=== PATIENT | male | born 1930 | race Caucasian/White ===

== ENCOUNTER 2017-02-06 10:53 | Inpatient (IN) | payer OTHER, BC ==
[~2017-02-06] VITALS: Ht 157.5 cm; Wt 49.3 kg
[2017-02-06 14:46] LABS: BASOPHIL (%) 0.1 % (0-1); EOSINOPHIL (%) 0.1 % (0-5); HEMATOCRIT 27.5 % (38.0-50.0); HEMOGLOBIN 7.9 G/DL (12.5-16.6); IMMATURE GRANULOCYTE (%) 0.7 % (0.0-0.7); LYMPHOCYTE (%) 9.9 % (15-42); LYMPHOCYTE COUNT 0.7 K/uL (1.0-2.8); MCH 18.8 PG (29.0-34.0); MCHC 28.7 G/DL (30.0-36.0); MCV 65.5 FL (86-99); MONOCYTE (%) 7.2 % (3-12); MONOCYTE COUNT 0.5 K/uL (0-0.8); NEUTROPHIL COUNT 5.5 K/uL (1.8-6.4); PLATELET COUNT 119 K/uL (156-360); RBC DIS.WIDTH-CV 20.7 % (11.8-14.6); RBC DIS.WIDTH-SD 46.3 % (39-53); WHITE BLOOD COUNT 6.8 K/uL (4.1-10.2)
[2017-02-06 14:48] LABS: ALBUMIN 3.2 g/dL (3.2-4.8)
[2017-02-06 14:49] LABS: MAGNESIUM 2.2 mg/dL (1.3-2.7)
[2017-02-06 14:50] LABS: APPEARANCE CLEAR ((CLEAR)); BILIRUBIN NEGATIVE; BLOOD LARGE; COLOR YELLOW ((YELLOW)); GLUCOSE (STRIP) 150; KETONES 5; LEUKOCYTES NEGATIVE; NITRITE NEGATIVE; PROTEIN (STRIP) 100; SPECIFIC GRAVITY 1.013 (1.000-1.030); UROBILINOGEN 0.2 MG/DL (0.2-1.0)
[2017-02-06 14:51] LABS: GLUCOSE 97 mg/dL (70-99); TOTAL PROTEIN 5.2 g/dL (6.4-8.3)
[2017-02-06 14:53] LABS: TOTAL BILIRUBIN 0.7 mg/dL (0.0-1.0)
[2017-02-06 14:54] LABS: ALKALINE PHOSPHATASE 98 IU/L (3-129)
[2017-02-06 14:54] LABS: BACTERIA RARE /HPF; EPITHELIAL CELLS RARE /HPF; MUCUS TRACE /LPF; RED BLOOD CELLS 0-5 /HPF (0-5); UCUL ADDED? YES
[2017-02-06 14:55] LABS: CREATININE 2.2 mg/dL (0.6-1.3); GFR ESTIMATE (CALCULATED) 30 mL/min/ (58.99-99999)
[2017-02-06 14:56] LABS: AST (GOT) 48 IU/L (2-34); UREA NITROGEN (BUN) 36 mg/dL (9-23)
[2017-02-06 14:57] LABS: ALT (GPT) 39 IU/L (3-49)
[2017-02-06 14:58] LABS: CHLORIDE 100 mEq/L (99-109); POTASSIUM 1.9 mEq/L (3.7-5.4)
[2017-02-06 15:03] LABS: SODIUM 139 mEq/L (136-147)
[2017-02-06] MEDS ORDERED: EYE DROP15 ML BOTH EYES (15:34)
[2017-02-06] MEDS ORDERED: ASPIR 8181 M1 PO (15:34)
[2017-02-06] MEDS ORDERED: COLACE100 MG PO (15:34)
[2017-02-06 15:36] LABS: CREATINE KINASE 263 IU/L (1-294); TOTAL CK 263 IU/L (1-294)
[2017-02-06 15:41] LABS: CK-MB 17.3 ng/mL (0.0-4.9); CKMB RELATIVE INDEX 6.6 (0.0-3.9)
[2017-02-06 16:27] LABS: TROP-I INTERPRETATION NEGATIVE; TROPONIN-I 0.13 ng/mL (0.0-0.30)
[2017-02-06 18:58] LABS: POTASSIUM 2.5 mEq/L (3.7-5.4)
[2017-02-06 20:07] LABS: IRON 14 MCG/DL (35-150); TRANSFERRIN (TIBC) 246.3 mg/dL (215-380); TRANSFERRIN SATUR. 6 % (20-55)
[2017-02-06 20:27] LABS: FERRITIN 13 NG/ML (22-322)
[2017-02-06 20:40] LABS: THYROTROPIN (TSH) 3.1 MIU/L (0.4-5.5)
[2017-02-06 21:38] VITALS: BP 122/60
[2017-02-06 23:01] LABS: TROP-I INTERPRETATION NEGATIVE; TROPONIN-I 0.11 ng/mL (0.0-0.30)
[2017-02-06 23:57] VITALS: BP 95/46
[2017-02-07 04:09] VITALS: BP 105/53
[2017-02-07 08:02] LABS: FOLIC ACID (FOLATE) 6.1 NG/ML (5.0-22.0)
[2017-02-07 08:05] LABS: HEMATOCRIT 25.9 % (38.0-50.0); HEMOGLOBIN 7.2 G/DL (12.5-16.6); MCH 18.8 PG (29.0-34.0); MCHC 27.8 G/DL (30.0-36.0); MCV 67.6 FL (86-99); PLATELET COUNT 107 K/uL (156-360); RBC DIS.WIDTH-CV 20.9 % (11.8-14.6); RBC DIS.WIDTH-SD 49.4 % (39-53); RED BLOOD COUNT 3.83 M/uL (4.00-5.50); WHITE BLOOD COUNT 6.7 K/uL (4.1-10.2)
[2017-02-07 08:07] VITALS: BP 121/60
[2017-02-07 08:17] LABS: TROP-I INTERPRETATION NEGATIVE; TROPONIN-I 0.12 ng/mL (0.0-0.30)
[2017-02-07 08:26] LABS: CHLORIDE 111 MEQ/L (99-109); CREATININE 1.9 MG/DL (0.6-1.3); GFR ESTIMATE (CALCULATED) 36 mL/min/ (58.99-99999); GLUCOSE 95 mg/dL (70-99); SODIUM 142 MEQ/L (136-147); UREA NITROGEN (BUN) 29 mg/dL (9-23)
[2017-02-07 08:30] LABS: POTASSIUM 3.5 MEQ/L (3.7-5.4)
[2017-02-07 11:07] LABS: FERRITIN 14 NG/ML (22-322); IRON 14 MCG/DL (35-150); TRANSFERRIN (TIBC) 222.6 mg/dL (215-380); TRANSFERRIN SATUR. 6 % (20-55)
[2017-02-07 11:31] VITALS: BP 114/60
[2017-02-07 16:03] VITALS: BP 117/60
[2017-02-07 19:48] VITALS: BP 116/55
[2017-02-08 00:04] VITALS: BP 120/64
[2017-02-08 07:03] LABS: HEMATOCRIT 27.6 % (38.0-50.0); HEMOGLOBIN 7.6 G/DL (12.5-16.6); MCH 18.9 PG (29.0-34.0); MCHC 27.5 G/DL (30.0-36.0); MCV 68.7 FL (86-99); RBC DIS.WIDTH-CV 21.4 % (11.8-14.6); RBC DIS.WIDTH-SD 51.7 % (39-53); RED BLOOD COUNT 4.02 M/uL (4.00-5.50); WHITE BLOOD COUNT 6.8 K/uL (4.1-10.2)
[2017-02-08 07:09] LABS: CHLORIDE 111 MEQ/L (99-109); GFR ESTIMATE (CALCULATED) 34 mL/min/ (58.99-99999); GLUCOSE 100 mg/dL (70-99); SODIUM 143 MEQ/L (136-147); UREA NITROGEN (BUN) 33 mg/dL (9-23)
[2017-02-08 07:12] LABS: POTASSIUM 4.5 MEQ/L (3.7-5.4)
[2017-02-08 07:40] LABS: PLAT.SUFFICIENCY DECREASED; PLATELET COUNT 114 K/uL (156-360)
[2017-02-08 08:03] VITALS: BP 110/56
[2017-02-08 16:35] VITALS: BP 116/59
[2017-02-09] VITALS (7 sets, daily range): BP systolic 91–136; BP diastolic 53–89
[2017-02-09 06:40] LABS: CHLORIDE 111 MEQ/L (99-109); CREATININE 2.4 MG/DL (0.6-1.3); GFR ESTIMATE (CALCULATED) 27 mL/min/ (58.99-99999); GLUCOSE 114 mg/dL (70-99); SODIUM 142 MEQ/L (136-147); UREA NITROGEN (BUN) 43 mg/dL (9-23)
[2017-02-09 08:04] LABS: HEMATOCRIT 27.8 % (38.0-50.0); HEMOGLOBIN 7.8 G/DL (12.5-16.6); MCH 18.9 PG (29.0-34.0); MCHC 28.1 G/DL (30.0-36.0); MCV 67.5 FL (86-99); RBC DIS.WIDTH-CV 21.4 % (11.8-14.6); RBC DIS.WIDTH-SD 49.4 % (39-53); RED BLOOD COUNT 4.12 M/uL (4.00-5.50); WHITE BLOOD COUNT 9.5 K/uL (4.1-10.2)
[2017-02-09 08:07] LABS: PLAT.SUFFICIENCY DECREASED; PLATELET COUNT 134 K/uL (156-360)
[2017-02-09 14:30] LABS: CARBOXY HGB 0.3 % (0-5); COMMENTS - BLOOD GASES C+; DEVICE NRB; FI02 100 %; METHEMOGLOBIN 1.8 % (0-1.5); O2 FLOW 15 L/MIN; PCO2 < 19 mm Hg (35-45); PO2 282 mm Hg (80-100); SITE LR; TOTAL RESP RATE 20 resp/min; pH 7.17 (7.35-7.45)
[2017-02-09 14:58] LABS: TROP-I INTERPRETATION NEGATIVE; TROPONIN-I 0.26 ng/mL (0.0-0.30)
[2017-02-09 15:50] LABS: CHLORIDE 108 MEQ/L (99-109); CREATININE 2.8 MG/DL (0.6-1.3); GFR ESTIMATE (CALCULATED) 23 mL/min/ (58.99-99999); GLUCOSE 96 mg/dL (70-99); SODIUM 141 MEQ/L (136-147); UREA NITROGEN (BUN) 50 mg/dL (9-23)
[2017-02-09 15:51] LABS: POTASSIUM 6.1 MEQ/L (3.7-5.4)
[2017-02-09 15:55] LABS: BASOPHIL (%) 0.1 % (0-1); EOSINOPHIL (%) 0 % (0-5); HEMATOCRIT 35.9 % (38.0-50.0); HEMOGLOBIN 9.4 G/DL (12.5-16.6); IMMATURE GRANULOCYTE (%) 1.1 % (0.0-0.7); LYMPHOCYTE (%) 3.5 % (15-42); LYMPHOCYTE COUNT 0.5 K/uL (1.0-2.8); MCH 18.9 PG (29.0-34.0); MCHC 26.2 G/DL (30.0-36.0); MONOCYTE (%) 3.9 % (3-12); MONOCYTE COUNT 0.6 K/uL (0-0.8); NEUTROPHIL (%) 91.4 % (45-76); NEUTROPHIL COUNT 13.7 K/uL (1.8-6.4); NRBC (%) 0.4 /100 WBC (0-0); RBC DIS.WIDTH-CV 22.5 % (11.8-14.6); RBC DIS.WIDTH-SD 55.7 % (39-53)
[2017-02-09 16:04] LABS: MCV 72.2 FL (86-99); RED BLOOD COUNT 4.97 M/uL (4.00-5.50)
[2017-02-09 16:10] LABS: PLATELET CLUMPS PRESENT - PLATELET COUNT APPEARS ADQ.
[2017-02-09 16:22] LABS: PLATELET COUNT UNABLE TO REPORT K/uL (156-360)
[2017-02-10] MEDS ORDERED: TRANSDERM-SCOP1 EACH TD (16:09)
[2017-02-10] MEDS ORDERED: ATROPINE 1100 DROP/5 PO (16:09)
[2017-02-10] MEDS ORDERED: MORPHINE CON20 MG/M1 PO (16:10)
[2017-02-10] MEDS ORDERED: ATIVAN INTE2 MG/1 ML PO (16:10)
== END 2017-02-10 19:33 | disposition hospice, home (50) | DRG 871 ==
LOC: EME 10:53 → 4WEST 18:38 → 5EAST 18:38 → EDOF 18:38 → ENRESERV 18:42 → 5EAST 20:39 → ENRESERV 02-09 15:26 → 4WEST 02-09 15:54 → ENRESERV 02-09 16:24 → 5EAST 02-09 17:44
PROVIDERS: Emergency Medicine; Hospitalist; Internal Medicine
PROC: 0HBRXZZ Excision of Toe Nail, External Approach (ICD-10-PCS; principal; 2017-02-08)
DX: A41.9 Sepsis, unspecified organism (principal); J18.9 Pneumonia, unspecified organism; R65.20 Severe sepsis without septic shock; J96.01 Acute respiratory failure with hypoxia; E87.2 Acidosis; N39.0 Urinary tract infection, site not specified; N17.9 Acute kidney failure, unspecified; R62.7 Adult failure to thrive; E87.6 Hypokalemia; D50.9 Iron deficiency anemia, unspecified; D69.6 Thrombocytopenia, unspecified; N18.3 Chronic kidney disease, stage 3 (moderate); I12.9 Hypertensive chronic kidney disease with stage 1 through stage 4 chronic kidney disease, or unspecified chronic kidney disease; Z66 Do not resuscitate; Z87.891 Personal history of nicotine dependence; B35.1 Tinea unguium; R13.10 Dysphagia, unspecified; R64 Cachexia; J90 Pleural effusion, not elsewhere classified; J98.11 Atelectasis; N43.3 Hydrocele, unspecified; N40.0 Benign prostatic hyperplasia without lower urinary tract symptoms; B96.1 Klebsiella pneumoniae [K. pneumoniae] as the cause of diseases classified elsewhere; H91.90 Unspecified hearing loss, unspecified ear; I25.2 Old myocardial infarction; E46 Unspecified protein-calorie malnutrition; E78.5 Hyperlipidemia, unspecified; E87.70 Fluid overload, unspecified; I24.8 Other forms of acute ischemic heart disease
CPT/HCPCS: 36600; 70450; 71010; 71250; 74176; 80048; 80048 91; 80053; 81003; 82272; 82550; 82553; 82607; 82728; 82746; 82803; 83540; 83605; 83735; 83880; 84132 91; 84443; 84466; 84484; 85025; 85027; 86850; 86880; 86900; 86901; 86920; 87040; 87077; 87086; 87186; 87449; 87502; 87641; 90686; 93005; 93971; 94760; 94799; 99281; 99285; G0103; J0696; J1644; J1940; J2060; J2270; J2930; J3480; J7030; J7040; P9016